=== PATIENT | female | born 1990 | race Hispanic/Latino ===

== ENCOUNTER 2016-07-05 08:53 | Day surgery (SDC) | payer OTHER ==
[~2016-07-05] VITALS: Ht 162.6 cm; Wt 90.7 kg
[~2016-07-05 08:53] MED LIST: DESYREL 150 MG150 MG PO; FLEXERIL10 MG PO; FLOMAX0.4 MG PO; LORTAB 5-325 M1 EACH PO; MACROBID100 MG PO; MOTRIN800 MG PO; Motrin PO; NAPROSYN500 MG PO; NORCO 5/3251 TABLET PO; NORCO 7.5/321 TABLET PO; ROBITUSSIN AC,T10 ML PO; SULINDAC200 MG PO; TORADOL10 MG PO; ULTRAM50 MG PO; VENTOLIN HFA18 GM IH; ZANTAC150 MG PO; ZITHROMAX Z-PA250 MG PO; ZOFRAN ODT4 MG PO
[2016-07-05 09:32] VITALS: BP 121/80
[2016-07-05] MEDS ORDERED: PERCOCET 5/31 TABLET PO (12:36)
[2016-07-05 14:25] VITALS: BP 106/64
[2016-07-05 15:24] VITALS: BP 103/59
== END 2016-07-05 15:25 | disposition home or self-care (01) ==
LOC: SDC 08:53
DX: N83.8 Other noninflammatory disorders of ovary, fallopian tube and broad ligament (principal); N83.202 Unspecified ovarian cyst, left side; K66.0 Peritoneal adhesions (postprocedural) (postinfection); J45.909 Unspecified asthma, uncomplicated; F41.9 Anxiety disorder, unspecified; K21.9 Gastro-esophageal reflux disease without esophagitis; Z79.51 Long term (current) use of inhaled steroids
CPT/HCPCS: 88304; J0330; J0690; J1100; J1170; J1885; J2250; J2405; J3010; S0020

== ENCOUNTER → 2016-10-30 | Outpatient (CLI) | payer OTHER ==
[~2016-10-30] VITALS: Ht 162.6 cm; Wt 44.0 kg
[~2016-10-30] MED LIST changes: +PERCOCET 5/31 TABLET PO; +PRENATAL TABLE1 EAC3 PO; +ZOFRAN4 MG PO
[2016-10-30 16:49] VITALS: BP 114/63
== END | disposition home or self-care (01) ==
LOC: IVINF 13:30
DX: Z31.82 Encounter for Rh incompatibility status (principal)
CPT/HCPCS: 96372; J2790

== ENCOUNTER → 2017-03-05 | Outpatient (CLI) | payer OTHER ==
[~2017-03-05] VITALS: Ht 163.8 cm; Wt 105.0 kg
[2017-03-05 10:38] VITALS: BP 114/58
== END | disposition home or self-care (01) ==
LOC: IVINF 10:30
DX: Z31.82 Encounter for Rh incompatibility status (principal); Z3A.00 Weeks of gestation of pregnancy not specified
CPT/HCPCS: 96372; J2790

== ENCOUNTER 2017-05-13 21:58 | Outpatient (CLI) | payer OTHER ==
[2017-05-13 22:15] VITALS: BP 115/61
== END 2017-05-14 01:23 | disposition home or self-care (01) ==
LOC: LDRP-OP → 2WEST 21:59 → LDRP-OP 07-02 14:29
DX: O60.03 Preterm labor without delivery, third trimester (principal); Z3A.37 37 weeks gestation of pregnancy
CPT/HCPCS: 59025; G0378

== ENCOUNTER 2017-05-25 07:53 | Inpatient (IN) | payer OTHER ==
[2017-05-25] VITALS (25 sets, daily range): BP systolic 89–185; BP diastolic 51–133
[~2017-05-25] VITALS: Ht 162.6 cm; Wt 111.8 kg
[2017-05-25] MEDS ORDERED: UNISOM SLEEP AI25 MG PO (08:22)
[2017-05-25] MEDS ORDERED: IRON325 M1 PO (08:24)
[2017-05-25 09:46] LABS: EOSINOPHIL (%) 0.5 % (0-5); EOSINOPHIL COUNT 0.1 K/uL (0-0.3); HEMATOCRIT 32.1 % (36.0-46.0); IMMATURE GRANULOCYTE (%) 3.4 % (0.0-0.7); IMMATURE GRANULOCYTE COUNT 0.3 K/uL; INSTRUMENT ABS NEUTROPHIL CT 7.8 K/uL; MCH 27.7 PG (29.0-34.0); MCHC 31.5 G/DL (30.0-36.0); MCV 87.9 FL (83-99); MEAN PLAT.VOLUME 10.6 uM^3 (9.5-12.4); MONOCYTE (%) 3.8 % (3-12); MONOCYTE COUNT 0.4 K/uL (0-0.8); NEUTROPHIL (%) 81.9 % (45-76); NEUTROPHIL COUNT 7.8 K/uL (1.8-6.4); PLATELET COUNT 158 K/uL (156-360); RBC DIS.WIDTH-CV 15.1 % (11.8-14.6); RBC DIS.WIDTH-SD 48.1 % (39-53); RED BLOOD COUNT 3.65 M/uL (3.80-5.20); WHITE BLOOD COUNT 9.6 K/uL (4.1-10.2)
[2017-05-26 07:12] LABS: EOSINOPHIL (%) 0.1 % (0-5); HEMATOCRIT 31.9 % (36.0-46.0); IMMATURE GRANULOCYTE (%) 1.5 % (0.0-0.7); IMMATURE GRANULOCYTE COUNT 0.3 K/uL; INSTRUMENT ABS NEUTROPHIL CT 16.3 K/uL; LYMPHOCYTE COUNT 1.4 K/uL (1.0-2.8); MCHC 32.6 G/DL (30.0-36.0); MCV 88.9 FL (83-99); MONOCYTE (%) 5.1 % (3-12); NEUTROPHIL (%) 85.5 % (45-76); NEUTROPHIL COUNT 16.3 K/uL (1.8-6.4); RBC DIS.WIDTH-CV 15.4 % (11.8-14.6); RBC DIS.WIDTH-SD 49.2 % (39-53); RED BLOOD COUNT 3.59 M/uL (3.80-5.20)
[2017-05-26 07:15] LABS: PLATELET COUNT 209 K/uL (156-360)
[2017-05-26 07:31] VITALS: BP 94/56
[2017-05-26 16:33] VITALS: BP 100/56
[2017-05-26 23:30] VITALS: BP 111/59
[2017-05-27 07:41] VITALS: BP 112/63
[2017-05-27] MEDS ORDERED: IBUPROFEN800 MG PO (10:30)
== END 2017-05-27 14:25 | disposition home or self-care (01) | DRG 775 ==
LOC: LDRP-OP 07:53 → 2WEST 07:54 → LDRP-OP 09:10 → 2WEST 21:41 → LDRP-OP 07-02 02:04
PROVIDERS: Advanced Practice Midwife
PROC: 3E0R3BZ Introduction of Anesthetic Agent into Spinal Canal, Percutaneous Approach (ICD-10-PCS; principal; 2017-05-25)
PROC: 10E0XZZ Delivery of Products of Conception, External Approach (ICD-10-PCS; principal; 2017-05-25)
PROC: 00HU33Z Insertion of Infusion Device into Spinal Canal, Percutaneous Approach (ICD-10-PCS; 2017-05-25)
DX: O99.824 Streptococcus B carrier state complicating childbirth (principal); Z3A.39 39 weeks gestation of pregnancy; Z37.0 Single live birth; O99.214 Obesity complicating childbirth; E66.9 Obesity, unspecified; Z68.30 Body mass index [BMI] 30.0-30.9, adult
CPT/HCPCS: 85025; C1755; J0290; J1200; J3010; J7050; J7120